=== PATIENT | female | born 1995 | race African-American/Black ===

== ENCOUNTER 2022-02-01 23:32 | Emergency (ER) | payer OTHER, SELFPAY ==
[2022-02-01 23:43] VITALS: BP 118/85; PULSE 140; RESP 18; TEMP 37.2; O2SAT 97; BMI 49.4
--- NOTE | 2022-02-02 00:06 | ED_ITS ---
HPI - Skin/Abscess/Foreign Bdy General Chief complaint: Skin/Abscess/Foreign Body Stated complaint: Abd pain, fever Time Seen by Provider: 02/02/22 00:00 Source: patient Mode of arrival: ambulatory Limitations: no limitations History of Present Illness HPI narrative: Patient comes to the emergency room complaining of a facial rash that started yesterday. Patient states is pruritic. Patient states it is on her hands as well. Patient denies any new lotions or products. Patient complaining of 2 days of fever. Patient denies any skin cellulitis/infection. Patient has nausea vomiting diarrhea Related Data Previous Rx's Medication Instructions Recorded diphenhydramine HCl 25 mg capsule 25 mg PO TID PRN itching #10 caps 02/02/22 (Benadryl) hydrocortisone 1 % topical ointment 1 appl topical QD-TID PRN itching 02/02/22 #28.35 grams Allergies Allergy/AdvReac Type Severity Reaction Status Date / Time shellfish derived Allergy Anaphylaxis Verified 02/01/22 23:42 Review of Systems Review of Systems: Constitutional : No Weight loss, complaining of subjective fever No Chills, No Night Sweats, No Fatigue, No Malaise ENT/Mouth : No Hearing loss, No Ear Pain, No Nasal Congestion, No Sinus Pain, No Hoarseness, No sore throat, No Rhinorrhea, No Swallowing Difficulty Eyes: No Eye Pain, No Swelling, No Redness, No Foreign Body, No Discharge, No Vision Changes Cardiovascular : No Chest Pain, No SOB, No Dyspnea on Exertion, No Orthopnea, No Edema, No Palpitations Respiratory : No Cough, No Sputum, No Wheezing, No Smoke Exposure, No Dyspnea Gastrointestinal : No Nausea, No Vomiting, No Diarrhea, No Constipation, No abdominal Pain, No Hematochezia, No Melena Genitourinary : no irregular bleeding, No Dysuria, No Urinary Frequency, No Hematuria, No Urinary Incontinence, No Urgency, No Flank Pain, No Urinary Flow Changes, No Hesitancy Musculoskeletal : No joint pain, No Myalgias, No Joint Swelling Skin : Bleeding of pruritic rash on her face Neuro : No Weakness, No Numbness, No Paresthesias, No Loss of Consciousness, No Dizziness, No Headache Psych : No Anxiety/Panic, No Depression, No SI/HI/AH/VH, No Social Issues, Heme/Lymph: No Bruising, No Bleeding,No Lymphadenopathy Endocrine : No Polyuria, No Polydipsia, No Temperature Intolerance [facility], [facility] Social History Social History Advance Directives: No Advance Directives Information Provided: Yes Physical Exam Vital Signs: Vital Signs: Last Vital Signs Temp 98.9 F 02/01/22 23:43 Pulse 140 H 02/01/22 23:43 Resp 18 02/01/22 23:43 BP 118/85 02/01/22 23:43 Pulse Ox 97 02/01/22 23:43 O2 Del Method 02/01/22 23:43 BMI result Body Mass Index 49.4 Const: Other: Appearance: Alert. Oriented X3. No acute distress. Well-appearing Eyes: Pupils equal, round and reactive to light. ENT: Pharynx normal. Neck: Normal inspection. Neck supple. No lymph nodes noted. No crepitus CVS: Normal heart rate and rhythm. Pulses normal. Normal S1 and S2 Respiratory: No respiratory distress. Breath sounds normal. No Wheezing. No rales Abdomen: Soft and nontender. No rigidity. No distention. Skin: Skin warm and dry. Patient has rash in her face, seems the patient has been picking her face quite a bit. Extremities: No lower extremity edema. No Lacerations. No Rash Neuro: Oriented X 3. No motor deficit. No sensory deficit. Moving all extr emities. No slurred speech. CN 2 through 12 grossly intact Psych: calm, cooperative, normal affect Course Course Course Narrative: Patient states another rashes in her hands and her arms, chest and abdomen. However, I do not see any rash other than her face. Patient has multiple scabs over her face. Patient states that the rash in her face is very itchy. This does not look like a scabies rash or bedbugs rash. Patient was given 1 dose of prednisone and patient already took Benadryl prior to arrival. Also, patient is being tested for COVID-19, was negative Reviewing patient's notes, in August of 2017, patient has similar presentation. Medications Administered Discontinued Medications Generic Name Dose Route Start Last Admin Trade Name Freq PRN Reason Stop Dose Admin Prednisone 50 mg 02/02/22 00:10 02/02/22 00:37 Prednisone 10 Mg Tablet PO 02/02/22 00:11 50 mg ONCE ONE Administration Medical Decision Making Lab Data Labs: Lab Results 02/02/22 Range/Units 00:11 COVID-19 ([facility]) Negative (Negative) COVID-19 Clin Com See Note Discharge Plan Discharge Clinical Impression: Viral exanthem, Acute viral syndrome Patient Disposition: Home, Self-Care Instructions: Viral Exanthem (ED) Additional Instructions: Please follow-up with your primary care physician tomorrow. If you have any worsening or new symptoms, please return to the emergency room or call 911 Prescriptions: New hydrocortisone 1 % ointment 1 appl topical QD-TID PRN (Reason: itching) Qty: 28.35 0RF diphenhydramine HCl [Benadryl] 25 mg capsule 25 mg PO TID PRN (Reason: itching) Qty: 10 0RF
[2022-02-02 00:32] LABS: COVID-19 Test Negative (Negative); IDNOW Serial# BCCEAD1C
[2022-02-02] MEDS: predniSONE 10 MG TABLET 50 MG PO (00:37)
== END 2022-02-02 00:57 | disposition home or self-care (01) ==
PROVIDERS: Emergency Provider Emergency Medicine; PCP Internal Medicine
DX: B34.9 Viral infection, unspecified (principal); B09 Unspecified viral infection characterized by skin and mucous membrane lesions; R50.9 Fever, unspecified; Z20.822 Contact with and (suspected) exposure to COVID-19
CPT/HCPCS: 87635; 99283; 99284

== ENCOUNTER 2023-01-30 22:45 | Emergency (ER) | payer OTHER, SELFPAY ==
--- NOTE | ~2023-01-30 | CT_ITS ---
EXAMINATION: CT ABDOMEN AND PELVIS WITH CONTRAST CLINICAL INFORMATION: Abdominal pain COMPARISON: None available. TECHNIQUE: Multidetector volumetric images were obtained from the superior aspect of the liver through the pubic symphysis following administration 99 mL of Omnipaque 350 intravenous contrast. Sagittal and coronal reformatted images were obtained on the technologist's workstation. Oral contrast: No This CT examination was performed using dose optimization techniques as appropriate, variously including the following: *Automated exposure control *Adjustment of mA and/or kV according to patient size (this includes techniques or standardized protocols for targeted exams where dose is matched to indication/reason for exam; i.e. extremities or head) *Use of iterative reconstruction technique DLP: 1098 mGy-cm FINDINGS: LUNG BASES: The visualized lung bases are unremarkable. LIVER, GALLBLADDER, AND BILIARY TREE: The liver is normal in size, shape, and attenuation. No focal hepatic lesion or biliary ductal dilatation is present. The gallbladder is unremarkable with no evidence of radiopaque gallstones, gallbladder wall thickening, or obvious pericholecystic inflammatory changes. PANCREAS: Unremarkable. SPLEEN: Unremarkable. ADRENAL GLANDS: Unremarkable. KIDNEYS AND URETERS: The kidneys are normal in size, shape, and attenuation. No hydronephrosis, hydroureter, or calculi seen. No perinephric stranding. BLADDER: Unremarkable. GASTROINTESTINAL TRACT: The small and large bowel are unremarkable. The appendix is unremarkable. ABDOMINAL WALL: No significant hernia is appreciated. LYMPH NODES: Normal. VASCULAR: Unremarkable. PELVIC VISCERA: There is a 7.6 cm intermediate density structure within the right adnexa with low to intermediate Hounsfield values and mild adjacent infiltrative change. OSSEOUS STRUCTURES: Unremarkable. CT/CT abdomen pelvis w IV con IMPRESSION: The appendix is visualized and is within normal limits. No renal calculi or renal collecting system obstructive change. 7.6 cm low to intermediate density structure within the right adnexa with some adjacent infiltrative change. This is possibly a hemorrhagic cyst. Correlation needed as to be a tubo-ovarian abscess is a consideration. Fleischner guidelines were followed.
--- NOTE | ~2023-01-30 | US_ITS ---
See above combined report for details.
--- NOTE | ~2023-01-30 | US_ITS ---
EXAMINATION: US PELVIS CLINICAL INFORMATION: Abdominal pain. COMPARISON: None available. TECHNIQUE: Ultrasound of the pelvis is performed using both transabdominal and transvaginal transducers along with Doppler. Transvaginal imaging is performed due to inadequate visualization transabdominally. FINDINGS: Uterus: The uterus is anteverted and measures 8.2 x 4.6 x 5.2 cm. The double wall endometrial thickness is 1.5 mm. The uterus is smooth in contour and has normal myometrial echogenicity. No visible fibroid. Adnexa: Both ovaries are visualized. There is normal color flow to the adnexa. There is no ovarian torsion. There is no pelvic ascites or fluid collection. Right ovary measures 3.9 x 5.8 x 7.1 cm. There is a 6.3 x 5.1 x 6.8 cm complex hypoechoic structure associated with the right ovary. Left ovary measures 3 x 1.7 x 2.8 cm. US/US pelvic and transvaginal IMPRESSION: 6.2 x 5.1 x 6.8 cm hypoechoic structure within the right adnexa associated with the right ovary most consistent with a cyst/hemorrhagic cyst. Prominent endometrium of uncertain significance.
[2023-01-30 22:53] VITALS: BP 135/91; PULSE 103; RESP 20; TEMP 36.6; O2SAT 98; BMI 51.6
[2023-01-30 23:27] LABS: MANUAL DIFF FLAG NO
[2023-01-30 23:35] LABS: Basophils Percent Auto 0.4 % (0-2); Eosinophils Absolute Auto 0.1 X10*3/uL (0.0-0.4); Eosinophils Percent Auto 1.1 % (0-4); Hematocrit 34.5 % (37.0-47.0); Hemoglobin 11.1 g/dl (12.0-16.0); Imm Gran Abs Auto 0.04 X10*3/uL (0.00-0.03); Imm Gran Pct Auto 0.4 % (0.0-0.4); Lymphocytes Absolute Auto 3.3 X10*3/uL (1.2-4.9); Lymphocytes Percent Auto 28.6 % (20-40); Mean Corpuscular HGB Conc 32.2 g/dl (31.0-35.0); Mean Corpuscular Hemoglobin 26.1 pg (27.0-33.0); Mean Platelet Volume 9.7 fL (9.4-12.3); Monocytes Absolute Auto 0.6 X10*3/uL (0.1-1.2); Monocytes Percent Auto 4.9 % (2-11); Neutrophils Absolute Auto 7.4 x10*3/uL (2.0-8.3); Neutrophils Percent Auto 64.6 % (45-73); Platelet Count 459 X10*3/uL (160-400); Red Blood Count 4.26 X10*6/uL (4.20-5.50); Red Cell Distribution Width 15.7 % (11.0-16.0); White Blood Count 11.4 X10*3/uL (4.8-10.8)
[2023-01-30 23:45] LABS: Alanine Aminotransferase 14 U/L (0-31); Alkaline Phosphatase 71 U/L (39-117); Anion Gap 13 (12-20); Aspartate Amino Transferase 12 U/L (5-31); Bilirubin Direct 0.2 mg/dL (0.0-0.5); Bilirubin Total 0.5 mg/dL (0.0-1.0); Blood Urea Nitrogen 12 mg/dL (9-16); Calcium 9.2 mg/dL (8.4-10.2); Carbon Dioxide 25 mmol/L (22-29); Chloride 108 mmol/L (96-108); Creatinine Clr Calc Pharmacy 154.2; Estimated Glomerular Filt Rate > 60; Glucose Random 120 mg/dL (60-115); Lipase 11 U/L (8-78); Potassium 3.7 mmol/L (3.3-5.1); Sodium 142 mmol/L (135-145); Total Protein 7.7 g/dL (6.5-8.0)
--- NOTE | 2023-01-31 00:28 | ED_ITS ---
HPI - Abdominal Pain General Chief Complaint: Abdominal Pain Stated Complaint: abd pain Time Seen by Provider: 01/31/23 00:00 Source: patient Mode of arrival: ambulatory History of Present Illness HPI narrative: 28-year-old female without significant past medical history states that for the past couple of days she has had some mild discomfort in lower abdomen and then today acutely experience lower abdominal discomfort with episode of vomiting blood , this occurred after she had eaten and she denies having eaten anything that contained a red color. She denies any prescription medications. She denies any intra-abdominal surgeries and has never experienced this discomfort previously. She does endorse dysuria. Related Data Previous Rx's Medication Instructions Recorded diphenhydramine HCl 25 mg capsule 25 mg PO TID PRN itching #10 caps 02/02/22 (Benadryl) hydrocortisone 1 % topical ointment 1 appl topical QD-TID PRN itching 02/02/22 #28.35 grams Allergies Allergy/AdvReac Type Severity Reaction Status Date / Time shellfish derived Allergy Anaphylaxis Verified 01/30/23 22:56 Review of Systems Review of Systems Pertinent positives and negatives as stated in HPI PMFSH Past Medical History Source: nursing notes reviewed Social History Social History Smoked in Last 30 Days: No Use of substances other than those prescribed or required for medical reasons: No Advance Directives: No Advance Directives Information Provided: No Patient : No Physical Exam ED Vital Signs: Vital Signs - 24 hr 01/30/23 22:53 01/31/23 00:34 01/31/23 02:12 Temperature 97.9 F 98.8 F 98.4 F Pulse Rate 103 H 93 96 Respiratory Rate 20 16 16 Blood Pressure 135/91 H 125/81 128/81 Pulse Oximetry 98 98 Oxygen Delivery Method Room Air Room Air 01/31/23 04:43 Temperature Pulse Rate 94 Respiratory Rate 16 Blood Pressure Pulse Oximetry 98 Oxygen Delivery Method Room Air BMI result Body Mass Index 51.6 VITAL SIGNS: Reviewed. GENERAL: Well developed, well nourished, in no acute distress. HEAD: Normocephalic/atraumatic EYES: PERRLA, EOMI EARS: Ext canals without abnormality NOSE: Nares patent bilateral OROPHARYNX: no oral lesions noted, posterior pharynx clear NECK: Supple, no adenopathy LUNGS: Normal breath sounds. No adventitious sounds or accessory muscle use. SpO2<98> CARDIOVASCULAR: Regular rate and rhythm without noted murmurs ABDOMEN: Soft, tenderness to palpation maximal in right upper quadrant, but palpation in lower abdomen is uncomfortable with reported pressure, non- distended with bowel sounds. MUSCULOSKELETAL: No tenderness, deformities, or effusions noted on gross inspection. EXTREMITIES: No cyanosis, clubbing or edema. SKIN: Inspection of the skin reveals no rashes NEUROLOGIC: Alert and oriented x 4. Strength and sensation to light touch were grossly intact x 4. Medical Decision Making Medical Decision Making MDM Narrative: 28-year-old female with history and clinical presentation, DDX: Cholecystitis, less likely diverticulitis, possible appendicitis, renal colic, urinary tract infection, ectopic I reviewed all investigations and hematologic indices demonstrate a stable normocytic anemia with mild elevation of the platelets and otherwise non infectious leukocytosis without left shift. Chemistry indices are grossly within normal limits and there is no evidence of FRANCISCO or electrolytes/liver enzyme derangements. Beta hCG is undetectable. Urinalysis with evidence of contamination and therefore no urinary tract infection. CT scan without acute findings other than concern for a hemorrhagic cyst versus TOA. Although patient does appear well and not consistent with a TOA will pursue ultrasound. Patient given combination analgesics. Ultrasound completed and demonstrates a large complex cyst, no evidence of torsion, for which patient will be instructed to follow-up in the outpatient setting with her OBGYN. She will also need to take [id number] analgesics for pain control I discussed all findings and plan with patient at bedside. Differential Diagnosis Differential Diagnoses: The differential diagnosis associated with the presentation includes Please see the discussion above Admission/Observation Consideration of admission/observation: Escalation of care including admission/observation considered Please see the discussion above Lab Data [facility] Lab Attestation statement: I reviewed the patient's lab results. Please see the discussion above 01/30/23 23:22 01/30/23 23:22 Labs: Lab Results 01/30/23 01/31/23 Range/Units 23:22 00:37 WBC 11.4 H (4.8-10.8) X10*3/uL RBC 4.26 (4.20-5.50) X10*6/uL Hgb 11.1 L (12.0-16.0) g/dl Hct 34.5 L (37.0-47.0) % MCV 81.0 (80.0-98.0) fL MCH 26.1 L (27.0-33.0) pg MCHC 32.2 (31.0-35.0) g/dl RDW 15.7 (11.0-16.0) % Plt Count 459 H (160-400) X10*3/uL MPV 9.7 (9.4-12.3) fL Immature Gran % (Auto) 0.4 (0.0-0.4) % Neut % (Auto) 64.6 (45-73) % Lymph % (Auto) 28.6 (20-40) % Lassen % (Auto) 4.9 (2-11) % Eos % (Auto) 1.1 (0-4) % Baso % (Auto) 0.4 (0-2) % Lymph # (Auto) 3.3 (1.2-4.9) X10*3/uL Lassen # (Auto) 0.6 (0.1-1.2) X10*3/uL Eos # (Auto) 0.1 (0.0-0.4) X10*3/uL Baso # (Auto) 0.0 (0.0-0.2) X10*3/uL Abs Immat Gran (auto) 0.04 H (0.00-0.03) X10*3/uL Absolute Neuts (auto) 7.4 (2.0-8.3) x10*3/uL Absolute Nucleated RBC 0.000 (0.0-0.012) X10*3/uL Nucleated RBC % (auto) 0.0 (0.0-0.2) /100WBC Sodium 142 (135-145) mmol/L Potassium 3.7 (3.3-5.1) mmol/L Chloride 108 (96-108) mmol/L Carbon Dioxide 25 (22-29) mmol/L Anion Gap 13 (12-20) BUN 12 (9-16) mg/dL Creatinine 0.69 (0.5-1.4) mg/dL Estim Creat Clear Calc 154.2 Estimated GFR > 60 Random Glucose 120 H (60-115) mg/dL Calcium 9.2 (8.4-10.2) mg/dL Total Bilirubin 0.5 (0.0-1.0) mg/dL Direct Bilirubin 0.2 (0.0-0.5) mg/dL AST 12 (5-31) U/L ALT 14 (0-31) U/L Alkaline Phosphatase 71 (39-117) U/L Total Protein 7.7 (6.5-8.0) g/dL Albumin 4.0 (3.5-5.0) g/dL Lipase 11 (8-78) U/L Beta HCG, Quant < 2 mIU/mL Urine Color Yellow Urine Appearance Clear Urine pH 7.5 (5.0-9.0) Ur Specific [place] >= 1.030 H (1.005-1.025) Urine Protein Trace (Neg-Trace) mg/dL Urine Glucose (UA) Negative (Negative) mg/dL Urine Ketones Trace (Negative) mg/dL Urine Blood Negative (Negative) Urine Nitrite Negative (Negative) Ur Leukocyte Esterase Small (1+) H (Negative) Urine RBC 3-5 H (0-2) /HPF Urine WBC 0-5 (0-5) /HPF Ur Squamous Epith Cells 3-5 (0-2) /HPF Urine Bacteria 2+ (None Seen) Hyaline Casts 0-2 (0-2) /LPF Urine Test NEGATIVE (NEGATIVE) Radiology Impression Discussion of test interpretation with radiology: I have reviewed the radiologist's reading. Radiologist Impression: Please see the discussion above Medications Administered Discontinued Medications Generic Name Dose Route Start Last Admin Trade Name Freq PRN Reason Stop Dose Admin Acetaminophen 975 mg 01/31/23 02:38 01/31/23 02:59 Acetaminophen 325 Mg Tablet PO 01/31/23 02:39 975 mg ONCE ONE Administration Iohexol 99 ml 01/31/23 01:19 01/31/23 01:20 Iohexol 350 Mg/Ml 100 Ml Infus..Btl IV 01/31/23 01:20 99 ml ONCE ONE Administration Ketorolac Tromethamine 15 mg 01/31/23 02:38 01/31/23 03:00 Ketorolac Tromethamine 30 Mg/Ml Vial IVPUSH 01/31/23 02:39 15 mg ONCE ONE Administration Discharge Plan Discharge Clinical Impression: Complex cyst of right ovary Patient Disposition: Home, Self-Care Instructions: Ovarian Cyst (ED) Additional Instructions: 1. You need to follow-up with an OBGYN or your primary care doctor within the next 1-2 days for re-evaluation further outpatient management. You will need repeat imaging for the right ovarian cyst. I have provided you with a referral to follow-up with Dr. Benavides, please find the information below. Return to the ER for any worsening symptoms. Prescriptions: No Action hydrocortisone 1 % ointment 1 appl topical QD-TID PRN (Reason: itching) Qty: 28.35 0RF diphenhydramine HCl [Benadryl] 25 mg capsule 25 mg PO TID PRN (Reason: itching) Qty: 10 0RF Referrals: Valeriano Benavides MD [Physician] - Interventions: ED Discharge Assessment Last Done: 01/31/23 04:43 Discharge Date/Time: 01/31/23 04:44
[2023-01-31 00:34] VITALS: BP 125/81; PULSE 93; RESP 16; TEMP 37.1
[2023-01-31 00:44] LABS: Appearance Urine Clear; Color Urine Yellow; Glucose Urine UA Negative (Negative); Leukocyte Esterase Urine Small (1+) (Negative); Nitrite Urine Negative (Negative); PH 7.5 (5.0-9.0); Specific Gravity - Urine >= 1.030 (1.005-1.025); UMIC TRIGGER UACC YES; Urine Blood Negative (Negative); Urine Ketones Trace mg/dL (Negative); Urine Protein Trace mg/dL (Neg-Trace)
[2023-01-31 00:47] LABS: UPreg QC Valid YES; Urine Pregnancy NEGATIVE (NEGATIVE)
[2023-01-31 00:52] LABS: Bacteria Urine 2+ (None Seen); Hyaline Casts Urine 0-2 /LPF (0-2); UACC Culture Trigger YES; WBC Urine 0-5 /HPF (0-5)
[2023-01-31 00:53] LABS: HCG Quantitative < 2 mIU/mL
[2023-01-31] MEDS: iohexoL 350 MG/ML 100 ML INFUS..BTL 99 ML IV (01:20)
[2023-01-31 02:12] VITALS: BP 128/81; PULSE 96; RESP 16; TEMP 36.9; O2SAT 98
[2023-01-31] MEDS: Acetaminophen 325 MG TABLET 975 MG PO (02:59)
[2023-01-31] MEDS: Ketorolac Tromethamine 30 MG/ML VIAL 15 MG IVPUSH (03:00)
[2023-01-31 04:43] VITALS: PULSE 94; RESP 16; O2SAT 98
== END 2023-01-31 04:44 | disposition home or self-care (01) ==
PROVIDERS: Emergency Provider Student in an Organized Health Care Education/Training Program
DX: N83.291 Other ovarian cyst, right side (principal); R10.30 Lower abdominal pain, unspecified
CPT/HCPCS: 36415; 74177; 76830; 76856; 80048; 80076; 81001; 81025; 83690; 84702; 85025; 87086; 93975; 96374; 99284; 99285; J1885; Q9967

== ENCOUNTER 2023-09-20 00:12 | Emergency (ER) | payer OTHER, SELFPAY ==
[2023-09-20 00:27] VITALS: BP 124/94; PULSE 112; RESP 18; TEMP 37.3; BMI 51.4
[2023-09-20 01:43] LABS: IDNOW Serial# 08D9AD1C; Strep A Nucleic Acid Positive (Negative)
--- NOTE | 2023-09-20 01:59 | ED.URI ---
HPI - URI/Sore Throat General Chief Complaint: Upper Respiratory Symptoms Stated Complaint: Sore Throat Time Seen by Provider: 09/20/23 01:20 History of Present Illness HPI Narrative: Patient is a 28-year-old female presents today with having pain to the throat. Pain is worse with swallowing. Able to tolerate p.o.. There is no change in voice. There is no difficulty in breathing. Patient from home. No fever no chills. Related Data Previous Rx's ?Medication ?Instructions ?Recorded diphenhydramine HCl 25 mg capsule 25 mg PO TID PRN itching #10 caps 02/02/22 (Benadryl) hydrocortisone 1 % topical ointment 1 appl topical QD-TID PRN itching 02/02/22 #28.35 grams penicillin V potassium 500 mg 500 mg PO TID Strep throat 10 days 09/20/23 tablet #30 tabs Allergies Allergy/AdvReac Type Severity Reaction Status Date / Time shellfish derived Allergy Anaphylaxis Verified 09/20/23 00:31 Review of Systems Review of Systems: Positive sore throat Yes all other systems are reviewed and are negative [facility] Past Medical History Attestation statement: The following information was validated with the patient. Social History Social History Advance Directives: No Advance Directives Information Provided: Yes Physical Exam Vital Signs: Vital Signs: Last Vital Signs Temp 99.1 F 09/20/23 00:27 Pulse 112 H 09/20/23 00:27 Resp 18 09/20/23 00:27 BP 124/94 H 09/20/23 00:27 O2 Del Method Room Air 09/20/23 00:27 BMI result Body Mass Index 51.4 Appearance: Alert. Oriented X3. No acute distress. Eyes: Pupils equal, round and reactive to light. ENT: Bilateral tonsils enlarged right greater than left. Positive exudates bilaterally. Posterior pharynx appeared red. Neck: Normal inspection. Neck supple. No lymph nodes noted. No crepitus CVS: Normal heart rate and rhythm. Pulses normal. Normal S1 and S2 Respiratory: No respiratory distress. Breath sounds normal. No Wheezing. No rales Abdomen: Soft and nontender. No rigidity. No distention. good BS x4 Skin: Skin warm and dry. Normal skin color. Normal skin turgor. Extremities: No lower extremity edema. Neurovascular intact to all extremities. No Lacerations. No Rash Neuro: Oriented X 3. No motor deficit. No sensory deficit. Moving all extermities. No slurred speech Medical Decision Making Medical Decision Making [facility] Narrative: Patient's strep came back positive. Likely the cause of patient's sore throat. Will start patient on penicillin Motrin for pain close follow-up on an outpatient basis. Encourage fluids. Encourage patient to take a full course of antibiotics. Both tonsils are enlarged although the right side seems slightly larger than the left Differential Diagnosis Differential Diagnoses: The differential diagnosis associated with the presentation includes Lab Data [facility] Lab Attestation statement: I reviewed the patient's lab results. Labs: Lab Results 09/20/23 Range/Units 00:34 S. pyogenes GrpA TY Positive A (Negative) Prescription Management Patient is started on penicillin Discharge Plan Discharge Clinical Impression: Strep pharyngitis Patient Disposition: Home, Self-Care Instructions: Strep Throat (ED) Additional Instructions: Lots of fluids hydrate. Please take all your antibiotics. Prescriptions: New penicillin V potassium 500 mg tablet 500 mg PO TID 10 Days Qty: 30 0RF No Action hydrocortisone 1 % ointment 1 appl topical QD-TID PRN (Reason: itching) Qty: 28.35 0RF diphenhydramine HCl [Benadryl] 25 mg capsule 25 mg PO TID PRN (Reason: itching) Qty: 10 0RF Referrals: Physician,None [Primary Care Provider] - 09/23/23 Stand Alone Forms: Work/School Release Print Language: Samoan
[2023-09-20] MEDS: Penicillin V Potassium 250 MG TABLET 500 MG PO (02:41)
[2023-09-20 02:52] VITALS: BP 101/56; PULSE 86; RESP 20; TEMP 36.8; O2SAT 98
--- NOTE | 2023-09-20 02:55 | PC.NURSE ---
Medicated per Mar, reviewed discharge instruction with pt. pt verbalized understanding, no sign of distress upon discharge, pt has a steady gait.
[2023-09-20 02:56] VITALS: BP 101/56; PULSE 86; RESP 20; TEMP 36.8; O2SAT 98
== END 2023-09-20 02:56 | disposition home or self-care (01) ==
PROVIDERS: Emergency Provider Emergency Medicine Emergency Medical Services
DX: J02.0 Streptococcal pharyngitis (principal)
CPT/HCPCS: 87651; 99283; 99284

== ENCOUNTER 2024-09-20 00:09 | Emergency (ER) | payer OTHER, SELFPAY ==
[2024-09-20 00:16] VITALS: PULSE 98; RESP 16; TEMP 36.8; O2SAT 96; BMI 51.4
[2024-09-20 00:44] LABS: MANUAL DIFF FLAG NO
[2024-09-20 00:47] LABS: Hematocrit 31.3 % (37.0-47.0); Hemoglobin 9.3 g/dl (12.0-16.0); Imm Gran Abs Auto 0.04 X10*3/uL (0.00-0.03); Imm Gran Pct Auto 0.3 % (0.0-0.4); Lymphocytes Absolute Auto 3.8 X10*3/uL (1.2-4.9); Mean Corpuscular HGB Conc 29.7 g/dl (31.0-35.0); Mean Corpuscular Hemoglobin 19.8 pg (27.0-33.0); Mean Corpuscular Volume 66.7 fL (80.0-98.0); NRBC Abs Auto 0.000 X10*3/uL (0.0-0.012); NRBC Pct Auto 0.0 /100WBC (0.0-0.2); Platelet Count 544 X10*3/uL (160-400); Red Blood Count 4.69 X10*6/uL (4.20-5.50); White Blood Count 12.5 X10*3/uL (4.8-10.8)
[2024-09-20 00:49] LABS: Appearance Urine Cloudy; Glucose Urine UA Negative (Negative); PH 5.5 (5.0-9.0); Specific Gravity - Urine 1.020 (1.005-1.025); UMIC TRIGGER UACC YES
[2024-09-20 00:59] LABS: Alanine Aminotransferase 20 U/L (0-31); Albumin Level 4.2 g/dL (3.5-5.0); Alkaline Phosphatase 78 U/L (39-117); Anion Gap 13 (12-20); Aspartate Amino Transferase 19 U/L (5-31); Blood Urea Nitrogen 7 mg/dL (9-16); Calcium 9.3 mg/dL (8.4-10.2); Carbon Dioxide 24 mmol/L (22-29); Chloride 108 mmol/L (96-108); Creatinine Clr Calc Pharmacy 162.0; Estimated Glomerular Filt Rate > 60; Potassium 3.7 mmol/L (3.3-5.1); Sodium 141 mmol/L (135-145); Total Protein 7.6 g/dL (6.5-8.0)
[2024-09-20 03:57] VITALS: BP 116/64; PULSE 80; RESP 18; O2SAT 98
--- NOTE | 2024-09-20 05:28 | ED_ITS ---
HPI - General Adult General Chief complaint: Abdominal Pain Stated complaint: abd pain, uti? Time Seen by Provider: 09/20/24 05:23 Source: patient Mode of arrival: ambulatory Limitations: no limitations History of Present Illness ED Provider: Dr. Whitney Mayberry HPI narrative: Patient comes to the emergency room complaining of dysuria for couple of days, no hematuria, no flank pain. Patient also complaining of abdominal discomfort, frequency and urgency. Denies fever chills Related Data Previous Rx's ?Medication ?Instructions ?Recorded diphenhydramine HCl 25 mg capsule 25 mg PO TID PRN itc roxy #10 caps 02/02/22 (Benadryl) hydrocortisone 1 % topical ointment 1 appl topical QD- TID PRN itching 02/02/22 #28.35 grams penicillin V potassium 500 mg 500 mg PO TID Strep thro at 10 days 09/20/23 tablet #30 tabs cefuroxime axetil 250 mg tablet 250 mg PO BID #9 tabs 09/20/24 phenazopyridine 100 mg tablet 100 mg PO TID #5 tabs Allergies Allergy/AdvReac Type Severity Reaction Status Date / Time shellfish derived Allergy Anaphylaxis Verified 09/20/24 00:16 Review of Systems 2 Review of Systems: Constitutional : No Weight loss, No Fever, No Chills, No Night Sweats, No Fatigue, No Malaise ENT/Mouth : No Hearing loss, No Ear Pain, No Nasal Congestion, No Sinus Pain, No Hoarseness, No sore throat, No Rhinorrhea, No Swallowing Difficulty Eyes: No Eye Pain, No Swelling, No Redness, No Foreign Body, No Discharge, No Vision Changes Cardiovascular : No Chest Pain, No SOB, No Dyspnea on Exertion, No Orthopnea, No Edema, No Palpitations Respiratory : No Cough, No Sputum, No Wheezing, No Smoke Exposure, No Dyspnea Gastrointestinal : No Nausea, No Vomiting, No Diarrhea, No Constipation, No abdominal Pain, No Hematochezia, No Melena Genitourinary : no irregular bleeding, complaining of dysuria, frequency, urgency, denies flank pain Musculoskeletal : No joint pain, No Myalgias, No Joint Swelling Skin : No Skin Lesions, No rash Neuro : No Weakness, No Numbness, No Paresthesias, No Loss of Consciousness, No Dizziness, No Headache Psych : No Anxiety/Panic, No Depression, No SI/HI/AH/VH, No Social Issues, Heme/Lymph: No Bruising, No Bleeding,No Lymphadenopathy Endocrine : No Polyuria, No Polydipsia, No Temperature Intolerance [facility] Social History Social History Advance Directives: No Advance Directives Information Provided: Yes Physical Exam ED Exam Exam: Appearance: Alert. Oriented X3. No acute distress. Eyes: Pupils equal, round and reactive to light. ENT: Pharynx normal. Neck: Normal inspection. Neck supple. No lymph nodes noted. No crepitus CVS: Normal heart rate and rhythm. Pulses normal. Normal S1 and S2 Respiratory: No respiratory distress. Breath sounds normal. No Wheezing. No rales Abdomen: Soft and nontender. No rigidity. No distention. Negative CVA tenderness Skin: Skin warm and dry. Normal skin color. Normal skin turgor. Extremities: No lower extremity edema. No Lacerations. No Rash Neuro: Oriented X 3. No motor deficit. No sensory deficit. Moving all extremities. No slurred speech. CN 2 through 12 grossly intact Psych: calm, cooperative, normal affect Vital Signs: Vital Signs - 24 hr 09/20/24 00:16 09/20/24 03:57 Temperature 98.3 F Pulse Rate 98 80 Respiratory Rate 16 18 Blood Pressure 116/64 Pulse Oximetry 96 98 Oxygen Delivery Method Room Air Room Air BMI result Body Mass Index 51.4 Medical Decision Making Medical Decision Making [facility] Narrative: My interpretation of labs: Patient's white blood cell count 12.5, no significant abnormality in patient's chemistry. Urinalysis positive for trace leukocyte esterase, heart rate amount of squamous epithelial cells along with 2+ bacteria. Given patient's symptoms, we will treat this as a UTI. First dose of cefuroxime given in the emergency room. Differential Diagnosis Differential Diagnoses: The differential diagnosis associated with the presentation includes (UTI, cystitis) Lab Data [facility] Lab Attestation statement: I reviewed the patient's lab results. 09/20/24 00:33 09/20/24 00:33 Labs: Lab Results 09/20/24 Range/Units 00:33 WBC 12.5 H (4.8-10.8) X10*3/uL RBC 4.69 (4.20-5.50) X10*6/uL Hgb 9.3 L (12.0-16.0) g/dl Hct 31.3 L (37.0-47.0) % MCV 66.7 L (80.0-98.0) fL MCH 19.8 L (27.0-33.0) pg MCHC 29.7 L (31.0-35.0) g/dl RDW 21.9 H (11.0-16.0) % Plt Count 544 H (160-400) X10*3/uL MPV 9.6 (9.4-12.3) fL Immature Gran % (Auto) 0.3 (0.0-0.4) % Neut % (Auto) 63.4 (45-73) % Lymph % (Auto) 30.2 (20-40) % Amelia % (Auto) 4.5 (2-11) % Eos % (Auto) 1.2 (0-4) % Baso % (Auto) 0.4 (0-2) % Lymph # (Auto) 3.8 (1.2-4.9) X10*3/uL Amelia # (Auto) 0.6 (0.1-1.2) X10*3/uL Eos # (Auto) 0.2 (0.0-0.4) X10*3/uL Baso # (Auto) 0.1 (0.0-0.2) X10*3/uL Abs Immat Gran (auto) 0.04 H (0.00-0.03) X10*3/uL Absolute Neuts (auto) 7.9 (2.0-8.3) x10*3/uL Absolute Nucleated RBC 0.000 (0.0-0.012) X10*3/uL Nucleated RBC % (auto) 0.0 (0.0-0.2) /100WBC Sodium 141 (135-145) mmol/L Potassium 3.7 (3.3-5.1) mmol/L Chloride 108 (96-108) mmol/L Carbon Dioxide 24 (22-29) mmol/L Anion Gap 13 (12-20) BUN 7 L (9-16) mg/dL Creatinine 0.65 (0.5-1.4) mg/dL Estim Creat Clear Calc 162.0 Estimated GFR > 60 Random Glucose 132 H (60-115) mg/dL Calcium 9.3 (8.4-10.2) mg/dL Total Bilirubin 0.4 (0.0-1.0) mg/dL AST 19 (5-31) U/L ALT 20 (0-31) U/L Alkaline Phosphatase 78 (39-117) U/L Total Protein 7.6 (6.5-8.0) g/dL Albumin 4.2 (3.5-5.0) g/dL Urine Color Yellow Urine Appearance Cloudy Urine pH 5.5 (5.0-9.0) Ur Specific [place] 1.020 (1.005-1.025) Urine Protein Negative (Neg-Trace) mg/dL Urine Glucose (UA) Negative (Negative) mg/dL Urine Ketones Trace (Negative) mg/dL Urine Blood Negative (Negative) Urine Nitrite Negative (Negative) Ur Leukocyte Esterase Trace H (Negative) Urine RBC 0-2 (0-2) /HPF Urine WBC 0-5 (0-5) /HPF Ur Squamous Epith Cells 11-20 (0-2) /HPF Urine Bacteria 2+ (None Seen) Hyaline Casts 0-2 (0-2) /LPF Discharge Plan Discharge Clinical Impression: UTI (urinary tract infection) Patient Disposition: Home, Self-Care Instructions: Urinary Tract Infection in Women (ED) Additional Instructions: Please follow-up with your primary care physician tomorrow. If you have any worsening or new symptoms, please return to the emergency room or call 911 Prescriptions: New cefuroxime axetil 250 mg tablet 250 mg PO BID Qty: 9 0RF phenazopyridine 100 mg tablet 100 mg PO TID Qty: 5 0RF No Action hydrocortisone 1 % ointment 1 appl topical QD-TID PRN (Reason: itching) Qty: 28.35 0RF diphenhydramine HCl [Benadryl] 25 mg capsule 25 mg PO TID PRN (Reason: itching) Qty: 10 0RF penicillin V potassium 500 mg tablet 500 mg PO TID 10 Days Qty: 30 0RF Print Language: Swazi
[2024-09-20 05:32] LABS: UPreg QC Valid YES
[2024-09-20 05:42] VITALS: BP 117/48; PULSE 79; RESP 20; O2SAT 98
[2024-09-20 05:54] VITALS: BP 117/48; PULSE 79; RESP 20; TEMP 37.2; O2SAT 98
== END 2024-09-20 05:55 | disposition home or self-care (01) ==
PROVIDERS: Emergency Provider Emergency Medicine
DX: N39.0 Urinary tract infection, site not specified (principal); R30.0 Dysuria; R35.0 Frequency of micturition; R10.2 Pelvic and perineal pain
CPT/HCPCS: 36415; 80053; 81001; 81025; 85025; 99283; 99284

== ENCOUNTER 2025-01-31 07:57 | Outpatient (REF) | payer OTHER, SELFPAY ==
[2025-01-31 09:05] LABS: MANUAL DIFF FLAG NO
[2025-01-31 09:30] LABS: Hematocrit 35.1 % (37.0-47.0); Hemoglobin 10.6 g/dl (12.0-16.0); Imm Gran Abs Auto 0.02 X10*3/uL (0.00-0.03); Imm Gran Pct Auto 0.3 % (0.0-0.4); Lymphocytes Absolute Auto 2.5 X10*3/uL (1.2-4.9); Mean Corpuscular HGB Conc 30.2 g/dl (31.0-35.0); Mean Corpuscular Hemoglobin 21.7 pg (27.0-33.0); Mean Corpuscular Volume 71.9 fL (80.0-98.0); NRBC Abs Auto 0.000 X10*3/uL (0.0-0.012); NRBC Pct Auto 0.0 /100WBC (0.0-0.2); Platelet Count 534 X10*3/uL (160-400); Red Blood Count 4.88 X10*6/uL (4.20-5.50); White Blood Count 7.7 X10*3/uL (4.8-10.8)
[2025-01-31 10:09] LABS: Alanine Aminotransferase 26 U/L (0-31); Albumin Level 4.3 g/dL (3.5-5.0); Alkaline Phosphatase 81 U/L (39-117); Anion Gap 8 (12-20); Aspartate Amino Transferase 23 U/L (5-31); Blood Urea Nitrogen 10 mg/dL (9-16); Calcium 9.2 mg/dL (8.4-10.2); Carbon Dioxide 26 mmol/L (22-29); Chloride 110 mmol/L (96-108); Cholesterol 163 mg/dL (<200); Estimated Glomerular Filt Rate > 60; HDL Cholesterol 48 mg/dL (>40); Iron 27 mcg/dL (30-160); Percent Iron Saturation 7 % (15-50); Potassium 4.0 mmol/L (3.3-5.1); Sodium 140 mmol/L (135-145); Total Iron Binding Capacity 370 mcg/dL (228-428); Total Protein 7.8 g/dL (6.5-8.0); Triglycerides 77 mg/dL (<150); Unsaturated Iron Binding 343 ug/dL
[2025-01-31 10:24] LABS: Syphilis Screen Nonreactive (Nonreactive)
[2025-01-31 10:25] LABS: Ferritin 13 ng/mL (10-122)
[2025-01-31 10:27] LABS: Appearance Urine Cloudy; Glucose Urine UA Negative (Negative); PH 5.5 (5.0-9.0); Specific Gravity - Urine 1.025 (1.005-1.025); UMIC TRIGGER UACC YES
[2025-01-31 10:36] LABS: HBS Num1 0.86 mIU/mL (0-7.99); HBc Num1 0.10 S/CO (0.00-0.79); HBsAGNum1 0.53 S/CO (0.00-0.99); Hepatitis B Surface Antigen Negative (Negative); ~HepC Num1 0.13 S/CO (0.00-0.79); ~Hepatitis B Surface Antibody NONREACTIVE (Nonreactive); ~Hepatitis C Antibody Nonreactive (Nonreactive)
[2025-01-31 10:37] LABS: Folate 7.6 ng/mL (> or = 4.0); Vitamin B12 415 pg/mL (200-900)
[2025-01-31 10:42] LABS: UACC Culture Trigger YES
== END 2025-01-31 07:58 | disposition home or self-care (01) ==
LOC: HO.LAB 07:57
DX: Z13.21 Encounter for screening for nutritional disorder (principal); Z11.3 Encounter for screening for infections with a predominantly sexual mode of transmission; Z13.0 Encounter for screening for diseases of the blood and blood-forming organs and certain disorders involving the immune mechanism; Z13.1 Encounter for screening for diabetes mellitus; Z13.29 Encounter for screening for other suspected endocrine disorder; Z13.220 Encounter for screening for lipoid disorders; N92.0 Excessive and frequent menstruation with regular cycle; F17.200 Nicotine dependence, unspecified, uncomplicated; F41.9 Anxiety disorder, unspecified; F32.A Depression, unspecified; M54.2 Cervicalgia; B35.1 Tinea unguium; L85.3 Xerosis cutis
CPT/HCPCS: 36415; 80053; 80061; 81001; 82306; 82607; 82728; 82746; 83540; 84443; 85025; 86704; 86706; 86780; 86803; 87086; 87340; 96127; 99202

== ENCOUNTER 2025-01-31 07:57 | Outpatient (AMB) | payer OTHER, SELFPAY ==
[2025-01-31 08:11] VITALS: BP 124/82; PULSE 78; O2SAT 98; BMI 51.6
--- NOTE | 2025-01-31 08:11 | A.OFFPC_ITS ---
Vital Signs 01/31/25 08:11 Height 5 ft 2 in Weight 282 lb BMI 51.6 BP 124/82 Blood Pressure Location Lt brachial Position Sitting Pulse 78 Pulse Source Pulse Oximeter Pulse Oximetry (%) 98 Oxygen Delivery Method Room Air Intake Visit Reasons: Requesting new PCP Allergies shellfish derived Allergy (Verified 01/31/25 08:19) Anaphylaxis Medication List - Last Reconciled 01/31/25 by Graciela Dickens PA-C diphenhydramine HCl (Benadryl) 25 mg PO TID PRN Tobacco use date assessed: 01/31/25 Dental Screening Dental Screen Date: 01/31/25 Did you have a dental visit in the last 12 months?: Yes Did you have a dental problem in the last 6 months where you did not have access to dental care?: No Was dental information given to patient?: Patient has dentist HPI Requesting new PCP HPI Details 30-year-old female coming to the office with the 1st time. Presenting for a new patient visit to establish primary care. She reports a new onset of headaches located in the back of her head, which started approximately four days ago and have been constant. Associated symptoms include right eyebrow twitching for the past few days, one episode of lightheadedness, and new-onset neck pain. She denies nausea, vomiting, vision changes, recent falls, or injuries. The patient endorses struggling with anxiety and some depression. She previously saw a therapist in [place] for years but had to stop due to an insurance change. She reports craving snow and ice, which prompted a request to check her iron levels. She has heavy menstrual periods, which have continued despite having a Mirena IUD placed in March of this year. She reports an issue with dry, cracked skin on her feet and a thickened toenail on her great toe, which she suspects is a fungus. She has tried various gwfy-zyf-vsuxzxp lotions, including Jennifer, cocoa butter, and a foot lotion for cracks, with limited success. She also tried a topical gel for the toenail without resolution. pap smear: referral placed today eye doctor: yearly Dr. Frausto [facility] Medical History Asthma Family History (Updated 01/31/25 @ 08:27 by Graciela Dickens PA-C) Mother No problems noted. Brother Mental health disorder Brother No problems noted. Brother No problems noted. Brother No problems noted. Sister No problems noted. Son No problems noted. Son No problems noted. 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 1. Little interest or pleasure in doing things: more than half the days 2. Feeling down, depressed, or hopeless: more than half the days 3. Trouble falling or staying asleep, or sleeping too much: more than half the days 4. Feeling tired or having little energy: several days 5. Poor appetite or overeating: several days 6. Feeling bad about yourself - or that you are a failure or have let yourself or your family down: not at all 7. Trouble concentrating on things, such as reading the newspaper or watching television: more than half the days 8. Moving or speaking so slowly that other people could have noticed. Or the opposite - being so fidgety or restless that you have been moving around a lot more than usual: not at all 9. Thoughts that you would be better off or of hurting yourself in some way: not at all Total score: 10 Depression Screening Interpretation: Positive ([facility] Depression Screening Follow-up: Existing condition Depression Screening Done: Yes 16826 - PHQ-9 Billing: Yes Source: Developed by Drs. Kasi Singh, Tierney Salmeron, Sukumar Branch and colleagues, with an educational eloisa from [employer]. Thrive Questionnaire Date Thrive assessed: 01/31/25 I am a: Patient What is your living situation today?: I have a place to live, but I am worried about losing it in the future Within the past 12 months, did the food you bought not last and you didn't have the money to get more?: Never true Within the past 12 months, did you worry whether your food would run out before you got money to buy more?: Never true Do you have trouble paying for medicines?: No Do you have trouble getting transportation to medical appointments?: No Do you have trouble paying your heating and electricity bill?: Yes Do you have trouble taking care of your child, family member or friend?: No Do you have trouble with day-to-day activities such as bathing, preparing meals, shopping, managing finances, etc.?: Yes Are you currently unemployed and looking for a job?: No Are you interested in more education?: Yes Please select the resources that you would like help with: Housing/Chcf and Utilities Currently or been in a relationship where the following occur: No concerns reported THRIVE Score: 2 AUDIT C Alcohol Use Questionnaire (AUDIT-C) 1. How often do you have a drink containing alcohol?: Monthly or less 2. How many drinks containing alcohol do you have on a typical day when you are drinking?: 1 or 2 3. How often do you have six or more drinks on one occasion?: Never Total Score: 1 Score Reviewed/Action Taken: Yes ROEL-7 AMB Questionnaire ROEL-7 Date ROEL - 7 assessed: 01/31/25 Feeling nervous, anxious, or on edge: 2 = More than half the days Not being able to stop or control worryin = Several days Worrying too much about different things: 1 = Several days Trouble relaxin = Several days Being so restless that it is hard to sit still: 1 = Several days Becoming easily annoyed or irritable: 3 = Nearly every day Feeling afraid as if something awful might happen: 3 = Nearly every day Total ROEL-7 score (0-4 normal; 5-9 mild; 10-14 moderate; 15-21 severe): 12 Source: Developed by Drs. Kasi Singh, Tierney Salmeron, Sukumar Branch and colleagues, with an educational eloisa from [employer]. ROEL-7 Assessment Billing ROEL-7 Assessment Tool: ROEL-7 Assessment 30960 Review of Systems Const Denies body aches, Denies chills, Denies fever(s), Reports headache(s) and Denies poor appetite Eyes Reports no additional complaints ENT Denies dysphagia, Denies dizziness, Reports headache(s) and Denies odynophagia Card Denies chest pain, Denies syncope, Denies edema, Denies irregular heart rhythm, Denies lightheadedness and Denies dyspnea Resp Denies cough and Denies dyspnea GI Denies abdominal pain, Denies constipation, Denies dysphagia, Denies diarrhea, Denies nausea, Denies odynophagia and Denies vomiting Reports no additional complaints Musc Reports as per HPI and Denies abnormal gait Skin/Breast Reports system reviewed and no additional complaints, except as documented Neuro Denies abnormal gait, Denies dizziness, Denies syncope and Reports headache(s) Psych Reports no additional complaints Physical exam (Primary Care) Vital Signs: Last Vital Signs Pulse 78 01/31/25 08:11 BP 124/82 01/31/25 08:11 Pulse Ox 98 01/31/25 08:11 Oxygen Delivery Method Room Air 01/31/25 08:11 BMI result Body Mass Index 51.6 Tobacco/Smoking Status: Tobacco use Status Tobacco use date assessed 01/31/25 01/31/25 08:17 Patient Tobacco Use Status Current everyday Tobacco 01/31/25 08:17 Tobacco use type Smokeless Tobacco 01/31/25 08:17 e-Cigarette/Vaping Use Currently Using 01/31/25 08:17 PHQ-9: PHQ-9 Score PHQ-9: Total score 10 01/31/25 08:30 Depression Screening Interpretation: Positive ([facility] Depression Screening Follow-up: Existing condition Thrive Assessment: Date of Thrive Assessment Date Thrive assessed 01/31/25 01/31/25 08:12 Currently or been in a relationship where the following occur: No concerns reported Const General: cooperative, healthy appearing, comfortable and no acute distress Orientation/consciousness: patient oriented x3 HENMT Head: Yes normocephalic Ears: hearing grossly normal bilaterally General nose exam: Normal external nose present Eyes General: appearance normal, both eyes and all related structures Conjunctivae: conjunctivae normal Neck Other: Tenderness to palpation over cervical spine and paraspinal muscles Neck: Yes full ROM and Yes no lymphadenopathy Resp Effort & Inspection: normal respiratory effort Auscultation: clear to auscultation bilaterally, no crackles, no rales, no rhonchi and no wheezes Cardio Rate: regular rate Rhythm: regular rhythm Skin Other: Thickening and yellow discoloration of left great toe. Dry cracking skin of bilateral feet General skin exam: no rashes or lesions noted Neuro General: patient oriented x3 Gait exam (Neuro): Normal gait present Extrem General: Yes normal to inspection, Yes full ROM and No edema Psych Affect: normal affect Attitude: cooperative Insight: Good insight present (Psych) Judgement: Good judgement present (Psych) Coding Level of Care Code New Pt Level 4 (24793) Diagnoses Nicotine use disorder F17.200 Anxiety F41.9 Depression F32.A Heavy menses N92.0 Neck pain M54.2 Onychomycosis B35.1 Xerosis cutis L85.3 Additional Codes ROEL-7 Assessment Billing - ROEL-7 Assessment Tool: ROEL-7 Assessment 69593 ([id number]) PHQ-9 - 56548 - PHQ-9 Billing: Yes ([id number]) Assessment & Plan Assessment & Plan (1) Nicotine use disorder: Code(s): F17.200 - Nicotine dependence, unspecified, uncomplicated Category: Medical Plan: The patient uses disposable vapes with nicotine and wishes to quit. After discussing options including a patch, lozenge, and gum, she opted to try nicotine gum. A prescription for nicotine gum will be sent to her pharmacy. (2) Anxiety: Code(s): F41.9 - Anxiety disorder, unspecified Category: Medical Plan: The patient endorsed symptoms of anxiety and depression on a screening questionnaire. She expressed a desire to resume counseling before considering medication. A referral will be placed for a counselor at [facility] who will contact her to schedule an appointment. (3) Depression: Code(s): F32.A - Depression, unspecified Category: Medical Plan: See above (4) Heavy menses: Code(s): N92.0 - Excessive and frequent menstruation with regular cycle Category: Medical Plan: The patient reports heavy menstrual bleeding despite having a Mirena IUD, as well as pica (craving snow/ice), raising suspicion for iron deficiency anemia. An iron panel has been ordered as part of her comprehensive blood work to investigate this. She was counseled on dietary sources of iron and the role of vitamin C in absorption, and was advised she could start an mosj-sfu-lrqiwbi iron supplement while being cautious about constipation. Referral was also placed to gynecology today (5) Neck pain: Code(s): M54.2 - Cervicalgia Category: Medical Plan: The patient's headache is likely a tension headache secondary to neck pain, which is suspected to be muscular in origin, possibly from a strain or sleeping incorrectly. Although arthritis is less likely given her age, a neck X-ray was deferred in favor of conservative management. The plan includes recommending Tylenol or ibuprofen, providing neck stretching exercises, and prescribing lidocaine patches. She was instructed to follow up if the pain worsens or does not improve, or if she develops a fever. (6) Onychomycosis: Code(s): B35.1 - Tinea unguium Category: Medical Plan: The patient has a thickened great toenail consistent with onychomycosis, which has not responded to topical treatment. An oral antifungal, terbinafine, was discussed as a treatment option. Initiation of this medication is contingent on baseline liver function tests, which are included in her ordered blood work. If the liver tests are normal, a three-month course of terbinafine once daily will be prescribed, with a plan to recheck liver function after one months. (7) Xerosis cutis: Code(s): L85.3 - Xerosis cutis Category: Medical Plan: The patient reports dry, cracked skin on her feet. I discussed using better moisturizers like Aquaphor or Eucerin, especially at nighttime. A prescription for a barrier cream was sent to her pharmacy to help with moisture retention. Plan This note was constructed using voice recognition software. While every effort has been made to ensure accuracy and senior bioinformatics scientist, still areas may have been in cluded sometimes these areas may affect the content or meeting of the given symptoms. Total time spent caring for the patient today was 30 minutes. This includes time spent before the visit reviewing the chart, time spent during the visit, and time spent after the visit and documentation. Patient was informed and verbally consented to the use of an ambient scribe for clinic note documentation during this visit. Orders: Orders IRON PROFILE Today N92.0 - Excessive and frequent menstruation with regular cycle TSH reflex Free T4 Today Z13.29 - Encounter for screening for other suspected endocrine disorder Vitamin D 25-OH Total Today Z13.21 - Encounter for screening for nutritional disorder CT NG by PCR Vag/Cerv Today Z11.3 - Encounter for screening for infections with a predominantly sexual mode of transmission Syphilis Screen Today Z11.3 - Encounter for screening for infections with a predominantly sexual mode of transmission Hepatitis B,C Profile Today Z11.3 - Encounter for screening for infections with a predominantly sexual mode of transmission Complete Blood Count Auto Diff Today N92.0 - Excessive and frequent menstruation with regular cycle, Z13.0 - Encounter for screening for diseases of the blood and blood-forming organs and certain disorders involving the immune mechanism Comprehensive Met. Panel Today Z13.1 - Encounter for screening for diabetes mellitus Vitamin B12 and Folate Today Z13.21 - Encounter for screening for nutritional disorder UA CC w/rflx Micro + Cult Today R35.89 - Other polyuria Lipid Panel Today Z13.220 - Encounter for screening for lipoid disorders Ferritin Today N92.0 - Excessive and frequent menstruation with regular cycle Referrals [employer] Referral Z12.4 - Encounter for screening for malignant neoplasm of cervix Counseling Referral F32.A - Depression, unspecified, F41.9 - Anxiety disorder, unspecified Medications: New nicotine (polacrilex) 2 mg buccal Q2H 20 ea 0RF lidocaine 5% leave on most painful area for up to 12 hrs 1 patch topical DAILY 15 ea 0RF ammonium lactate 12% (AmLactin) 1 appl topical DAILY 225 grams 1RF Discontinued diphenhydramine HCl (Benadryl) Discontinued Reason: Patient no longer taking 25 mg PO TID PRN 10 caps 0RF itching phenazopyridine Discontinued Reason: Patient Completed Course 100 mg PO TID 5 tabs 0RF penicillin V potassium Discontinued Reason: Patient Completed Course 500 mg PO TID 10 days 30 tabs 0RF Strep throat cefuroxime axetil Discontinued Reason: Patient Completed Course 250 mg PO BID 9 tabs 0RF
== END 2025-01-31 08:48 | disposition home or self-care (01) ==
LOC: HO.HMCH 07:58
DX: F17.200 Nicotine dependence, unspecified, uncomplicated (principal); F41.9 Anxiety disorder, unspecified; F32.A Depression, unspecified; N92.0 Excessive and frequent menstruation with regular cycle; M54.2 Cervicalgia; B35.1 Tinea unguium; L85.3 Xerosis cutis